=== PATIENT | male | born 1945 | race Hispanic/Latino ===

== ENCOUNTER 2019-05-17 14:35 | Emergency (ER) | payer MEDICARE ==
[~2019-05-17 14:35] MED LIST: ACET325T51 PEG; ALBU2.5V2 IH; ASPI-555 PEG; ATOR10 PEG; CALC-916 PEG; FAMO-136 PEG; INSU100V12 SQ; LEVE500L PEG; LEVO500P29 IV; LISI10TA7 PEG; MULT-40 PO
== END 2019-05-17 16:32 | disposition home or self-care (01) ==
LOC: EDH 14:35
DX: K94.23 Gastrostomy malfunction (principal); I10 Essential (primary) hypertension; E11.9 Type 2 diabetes mellitus without complications; E78.5 Hyperlipidemia, unspecified; K21.9 Gastro-esophageal reflux disease without esophagitis; Z86.73 Personal history of transient ischemic attack (TIA), and cerebral infarction without residual deficits